=== PATIENT | female | born 1990 | race Caucasian/White ===

== ENCOUNTER 2017-01-06 13:38 | Emergency (ER) | payer MEDICAID, OTHER ==
[2017-01-06 13:49] VITALS: O2SAT 98
[2017-01-06 15:26] LABS: % IMMATURE GRANULYOCYTES 0.4 % (0.0-1.1); ABSOLUTE IMMATURE GRANULOCYTES 0.06 10^3/uL (0.00-0.10); ADD DIFF? NO; ADD MORPH? NO; ADD SCAN? NO; ATYPICAL LYMPHOCYTE FLAG 0 (0-99); FRAGMENT RBC FLAG 0 (0-99); HEMATOCRIT 38.2 % (38.0-47.0); HEMOGLOBIN 13.8 g/dL (12.6-16.3); LEFT SHIFT FLG 0 (0-99); LIPEMIA HEMOLYSIS FLAG 90 (0-99); MEAN CELL HEMOGLOBIN 35.3 pg (27.9-34.1); MEAN CELL HEMOGLOBIN CONCENTR. 36.1 g/dL (32.4-36.7); MEAN CELL VOLUME 97.7 fL (81.5-99.8); MEAN PLATELET VOLUME 9.1 fL (8.7-11.7); PLATELET CLUMPS FLAG 0 (0-99); PLATELET COUNT 278 10^3/uL (150-400); RED BLOOD CELL COUNT 3.91 10^6/uL (4.18-5.33); RED CELL DISTRIBUTION WIDTH 11.5 % (11.5-15.2)
[2017-01-06 15:33] LABS: ANION GAP 8 mEq/L (8-16); CALCIUM 9.9 mg/dL (8.5-10.4); CARBON DIOXIDE 24 mEq/l (22-31); CHLORIDE 103 mEq/L (97-110); CREATININE 0.8 mg/dL (0.6-1.0); GLOMERULAR FILTRATION RATE > 60; GLUCOSE 80 mg/dL (70-100); POTASSIUM 4.1 mEq/L (3.5-5.2); SODIUM 135 mEq/L (134-144)
[2017-01-06] MEDS ORDERED: ONDANSETRON 4 MG/2 ML VIAL IVP ONE (15:35)
[2017-01-06] MEDS ORDERED: fentaNYL 100 MCG/2 ML INJ IVP ONE (15:35)
[2017-01-06 15:45] LABS: COLOR YELLOW; LEUKOCYTE ESTERASE,URINE NEGATIVE (NEGATIVE); NITRITE,URINE NEGATIVE (NEGATIVE)
[2017-01-06 16:11] VITALS: RESP 16
[2017-01-06] MEDS ORDERED: KETOROLAC 30 MG/1 ML SDV IVP ONE (16:45)
[2017-01-06 16:55] VITALS: BP 115/69; PULSE 68; TEMP 97.7
--- NOTE | 2017-01-06 17:05 | EDPHY ---
H & P Time Seen by Provider: 01/06/17 14:20 HPI/ROS: CHIEF COMPLAINT: Abdominal pain HISTORY OF PRESENT ILLNESS: 26-year-old female presents to the emergency department with lower abdominal cramping. Symptoms began yesterday. She also notes some vaginal swelling over the last 1 day. She denies any known trauma or injury. She had intercourse 2 days ago and had pain associated with this. She denies dysuria, urgency or frequency with urination. No fevers or chills. No back pain. She has an IUD. No chest pain or difficulty breathing. No other reported trauma. No vaginal discharge or spotting. REVIEW OF SYSTEMS: Constitutional: No fever, no chills. Eyes: No double or blurry vision. ENT: No sore throat. Respiratory: No cough, no shortness of breath. Cardiac: No chest pain. Gastrointestinal: Abdominal pain as above. No vomiting or diarrhea. Genitourinary: No dysuria. Musculoskeletal: No neck or back pain. Skin: No rashes. Neurological: No headache. Past Medical/Surgical History: Negative Social History: Single Smoking Status: Never smoked Physical Exam: General Appearance: Alert, no distress. Afebrile. Eyes: Pupils equal and round. Extraocular motions are all intact. ENT: Mouth: Mucous membranes moist. Respiratory: No wheezing, rhonchi, or rales, lungs are clear to auscultation. Cardiovascular: Regular rate and rhythm. Gastrointestinal: Abdomen is soft. Tenderness with palpation in the left lower quadrant greater than right lower quadrant. Slight tenderness in the suprapubic area. No rebound, guarding or masses noted. No CVA tenderness bilaterally. Genitourinary: There is slight swelling noted to the left labia majora. It is tender to palpate. It is firm. It does not extend into the labia minora or to the vaginal opening. The right labia appears normal. Neurological: Alert and oriented x 3, cranial nerves II through XII grossly intact Skin: Warm and dry, no rashes. Musculoskeletal: Nontender to palpate along the cervical, thoracic or lumbar spine. Neck is supple. Extremities: Full range of motion and no peripheral edema. Psychiatric: Patient is oriented X 3, there is no agitation. Constitutional: Initial Vital Signs Temperature (C) 37.2 C 01/06/17 13:47 Heart Rate 68 01/06/17 13:47 Respiratory Rate 18 01/06/17 13:47 Blood Pressure 104/92 H 01/06/17 13:47 O2 Sat (%) 98 01/06/17 13:47 O2 Delivery Mode Room Air Allergies/Adverse Reactions: No Known Allergies Allergy (Unverified 01/06/17 13:50) Home Medications: Medication Instructions Recorded Cephalexin [Keflex] 500 mg PO QID #28 cap 01/06/17 Medical Decision Making - Diagnostics Imaging Results: Imaging Impressions Pelvic/Renal Ultrasound 01/06/17 15:11 Impression: 1. Simple 4.5-cm left ovarian cyst. For a cyst of this size, no specific follow up is required. 2. IUD in good position. Findings discussed with Trista Mejia PA-C on January 06, 2017 at 1614 hours. Extremity Ultrasound 01/06/17 15:16 Impression: This could be related to a complex skene duct cyst or Bartholin cyst /abscess. Findings discussed with Trista Mejia PA-C on January 06, 2017 at 1614 hours. Imaging: Discussed imaging studies w/ tailings dam pumper Radiologist ED Course/Re-evaluation: 26-year-old female presents to the emergency department with lower abdominal pain. Pelvic ultrasound reveals 4.5 cm simple left ovarian cyst. No evidence of torsion. Ultrasound of the left labia reveals 1.1 x 1.9 x 0.8 cm possible phlegmon versus possible early Bartholin's cyst. On-call OBGYN was paged and I spoke with Martha Brown. The she did not recommend incising Bartholin's cyst given the size and given how firm it is by report. She agreed with warm compresses. She recommended Keflex and to follow up in their office on Sunday. The patient was also given Toradol 30 mg IV and was feeling much better. She felt like her pain had nearly completely resolved. She felt comfortable being discharged home. I discussed the importance of strict pelvic rest as well as applying warm compresses. She may use anti-inflammatory such as ibuprofen. She will take the Keflex as prescribed. She was instructed to return sooner to the emergency department if she developed increasing pain, swelling or fever. She was comfortable with plan. Differential Diagnosis: Including but not limited to ovarian cyst, ovarian torsion, acute appendicitis, urinary tract infection, pyelonephritis, kidney stone, Bartholin's abscess, vaginal abscess, phlegmon - Data Points Laboratory Results: Laboratory Results 01/06/17 14:40 01/06/17 14:40 01/06/17 01/06/17 01/06/17 15:30 14:40 14:40 WBC RBC Hgb Hct MCV MCH MCHC RDW Plt Count MPV Neut % (Auto) Lymph % (Auto) Porter % (Auto) Eos % (Auto) Baso % (Auto) Nucleat RBC Rel Count Absolute Neuts (auto) Absolute Lymphs (auto) Absolute Monos (auto) Absolute Eos (auto) Absolute Basos (auto) Absolute Nucleated RBC Immature Gran % Immature Gran # Sodium 135 mEq/L mEq/L (134-144) Potassium 4.1 mEq/L mEq/L (3.5-5.2) Chloride 103 mEq/L mEq/L (97-110) Carbon Dioxide 24 mEq/l mEq/l (22-31) Anion Gap 8 mEq/L mEq/L (8-16) BUN 10 mg/dL mg/dL (7-23) Creatinine 0.8 mg/dL mg/dL (0.6-1.0) Estimated GFR > 60 Glucose 80 mg/dL mg/dL (70-100) Calcium 9.9 mg/dL mg/dL (8.5-10.4) Beta HCG, Qual NEGATIVE Urine Color YELLOW Urine Appearance HAZY Urine pH 8.0 H (5.0-7.5) Ur Specific Boyce 1.010 (1.002-1.030) Urine Protein NEGATIVE (NEGATIVE) Urine Ketones TRACE H (NEGATIVE) Urine Blood NEGATIVE (NEGATIVE) Urine Nitrate NEGATIVE (NEGATIVE) Urine Bilirubin NEGATIVE (NEGATIVE) Urine Urobilinogen NEGATIVE EU EU (0.2-1.0) Ur Leukocyte Esterase NEGATIVE (NEGATIVE) Urine RBC 5-10 /hpf H /hpf (0-3) Urine WBC 3-5 /hpf H /hpf (0-3) Ur Epithelial Cells 1+ /lpf /lpf (NONE-1+) Urine Glucose NEGATIVE (NEGATIVE) 01/06/17 14:40 WBC 14.89 10^3/uL H 10^3/uL (3.80-9.50) RBC 3.91 10^6/uL L 10^6/uL (4.18-5.33) Hgb 13.8 g/dL g/dL (12.6-16.3) Hct 38.2 % % (38.0-47.0) MCV 97.7 fL fL (81.5-99.8) MCH 35.3 pg H pg (27.9-34.1) MCHC 36.1 g/dL g/dL (32.4-36.7) RDW 11.5 % % (11.5-15.2) Plt Count 278 10^3/uL 10^3/uL (150-400) MPV 9.1 fL fL (8.7-11.7) Neut % (Auto) 68.1 % % (39.3-74.2) Lymph % (Auto) 19.7 % % (15.0-45.0) Porter % (Auto) 7.9 % % (4.5-13.0) Eos % (Auto) 3.2 % % (0.6-7.6) Baso % (Auto) 0.7 % % (0.3-1.7) Nucleat RBC Rel Count 0.0 % % (0.0-0.2) Absolute Neuts (auto) 10.14 10^3/uL H 10^3/uL (1.70-6.50) Absolute Lymphs (auto) 2.94 10^3/uL 10^3/uL (1.00-3.00) Absolute Monos (auto) 1.17 10^3/uL H 10^3/uL (0.30-0.80) Absolute Eos (auto) 0.47 10^3/uL H 10^3/uL (0.03-0.40) Absolute Basos (auto) 0.11 10^3/uL H 10^3/uL (0.02-0.10) Absolute Nucleated RBC 0.00 10^3/uL 10^3/uL (0-0.01) Immature Gran % 0.4 % % (0.0-1.1) Immature Gran # 0.06 10^3/uL 10^3/uL (0.00-0.10) Sodium Potassium Chloride Carbon Dioxide Anion Gap BUN Creatinine Estimated GFR Glucose Calcium Beta HCG, Qual Urine Color Urine Appearance Urine pH Ur Specific Boyce Urine Protein Urine Ketones Urine Blood Urine Nitrate Urine Bilirubin Urine Urobilinogen Ur Leukocyte Esterase Urine RBC Urine WBC Ur Epithelial Cells Urine Glucose Medications Given: Discontinued Medications Cephalexin (Keflex 500 Mg Prepack#4) 1 btl TAKEHOME EDNOW ONE PRN Reason: Protocol Stop: 01/06/17 17:12 Last Admin: 01/06/17 17:18 Dose: 1 btl Fentanyl (Sublimaze) 50 mcg IVP EDNOW ONE Stop: 01/06/17 15:36 Last Admin: 01/06/17 15:40 Dose: 50 mcg Ketorolac Tromethamine (Toradol) 30 mg IVP EDNOW ONE Stop: 01/06/17 16:46 Last Admin: 01/06/17 16:53 Dose: 30 mg Ondansetron HCl (Zofran) 4 mg IVP EDNOW ONE Stop: 01/06/17 15:36 Last Admin: 01/06/17 15:40 Dose: 4 mg Departure - Departure Disposition: Home, Routine, Self-Care Clinical Impression: Left ovarian cyst, Bartholin cyst Condition: Good Instructions: Ovarian Cyst (ED), Bartholin Cyst (ED) Additional Instructions: Warm compresses to groin 15-20 minutes every 2-3 hours. Keflex 500 mg 4 times daily for 1 week. Ibuprofen 600 mg every 8 hours as needed for pain. Call to schedule follow-up appointment to be seen by surety bond agent on Sunday to recheck. Return emergency department sooner if you develop increasing pain, fever, or if you feel worse in any way. Strict pelvic rest as discussed. Referrals: Gabrielle Wilcox, DO [Doctor of Osteopathy] - 1-2 days without fail (OBGYN on- call. When you call to schedule follow-up appointment for this week, tell them that you were seen in the emergency department and we spoke with Martha Brown any way told to be seen for follow-up on Sunday.) Prescriptions: Cephalexin [Keflex] 500 mg PO QID #28 cap
[2017-01-06] MEDS ORDERED: CEPHALEXIN 500MG PREPACK#4 BTL TAKEHOME ONE (17:11)
== END 2017-01-06 17:25 | disposition home or self-care (01) ==
DX: N83.202 Unspecified ovarian cyst, left side (principal); N75.0 Cyst of Bartholin's gland
CPT/HCPCS: 96374; J1885; J2405; J3010